=== PATIENT | male | born 1970 | race Caucasian/White ===

== ENCOUNTER 2016-11-14 06:22 | Emergency (ER) | payer OTHER ==
[2016-11-14 06:58] VITALS: BP 113/79; PULSE 83; TEMP 98.1; BMI 28.5
--- NOTE | 2016-11-14 07:17 | PDOC ---
History of Present Illness - General Chief Complaint: Pain Stated Complaint: KNEE PAIN Time Seen by Provider: 11/14/16 07:15 History Source: Patient Exam Limitations: No Limitations - History of Present Illness Initial Comments: CHIEF COMPLAINT: 46 y/o afebrile male with no significant PMH c/o left knee pain since yesterday. HISTORY OF PRESENT ILLNESS: He denies trauma to the area. He did not take any pain medication. He denies f/c, n/v/d, CP, SOB, redness/swelling to affected knee. Vital signs on arrival are within normal limits. REVIEW OF SYSTEMS: GENERAL/CONSTITUTIONAL: No fever/chills. No weakness. No weight change. HEAD, EYES, EARS, NOSE AND THROAT: No change in vision. No ear pain or discharge. No sore throat. MUSCULOSKELETAL: +left knee pain. No swelling or redness to affected knee. No neck or back pain. SKIN: No rash or easy bruising. NEUROLOGIC: No headache, vertigo, loss of consciousness, or loss of sensation. . PHYSICAL EXAM: VITAL_SIGNS: within normal limits GENERAL_APPEARANCE: alert, cooperative, obvious discomfort with ambulation. MENTAL_STATUS: speech clear, oriented X 3, responds appropriately to questions. NEURO: motor intact and sensory intact in injured extremity. EXTREMITIES: No erythema or edema to left knee. Mild warmth to left knee as compared to right. TTP of lateral joint line of left knee. Negative lachmann' s test. SKIN: warm, dry, good color. Past History - Past Medical History Allergies/Adverse Reactions: Allergies Allergy/AdvReac Type Severity Reaction Status Date / Time No Known Allergies Allergy Verified 11/14/16 06:40 Home Medications: Ambulatory Orders Ibuprofen 600 mg PO Q6H #30 tablet 11/14/16 Suicide Attempt (Hx): No Other medical history: denies - Immunization History Immunization Up to Date: Yes - Psycho/Social/Smoking Cessation Hx Anxiety: No Suicidal Ideation: No Smoking History: Never smoked Hx Alcohol Use: No Substance Use Type: None *Physical Exam - Vital Signs Last Vital Signs Temp Pulse Resp BP Pulse Ox 98.1 F 83 18 113/79 100 11/14/16 06:40 11/14/16 06:40 11/14/16 06:40 11/14/16 06:40 11/14/16 06:40 Medical Decision Making - Medical Decision Making A/P: 46 y/o afebrile male with atraumatic left knee pain. Plan is as follows: 1. Left knee xray 2. IM toradol Knee xray IMPRESSION: No gross bone or soft tissue abnormality is seen. Used [employer] sales engineer Eva, #[id number] via [employer]ospace products sales engineer phones to inform the patient of his results. He states he feels better after toradol. Will wrap knee with ANTHONY bandage. Suggested he take 600mg of Ibuprofen every 6 hours with food for pain , follow RICE instructions and f/u with Dr. Rosenberg within 1 week if no improvement in symptoms. Pt instructed to return to the ER with any worsening or concerning symptoms. The patient verbalizes understanding of all instructions, has no further questions and is awaiting discharge. *DC/Admit/Observation/Transfer Diagnosis at time of Disposition: Knee pain, left Qualifiers: Chronicity: acute Qualified Code(s): M25.562 - Pain in left knee - Discharge Dispostion Disposition: HOME Condition at time of disposition: Improved - Prescriptions Prescriptions: Ibuprofen 600 mg PO Q6H #30 tablet - Referrals Referrals: Gonzalez Wheatley MD [Primary Care Provider] - Sahil Rosenberg MD [Staff Physician] - 1 week - Patient Instructions Printed Discharge Instructions: DI for Knee Pain, How To Perform RICE (Rest, Ice, Compress, Elevate) Additional Instructions: Discharge Instructions: -Take Ibuprofen as prescribed with food for pain -Use ANTHONY bandage for comfort. -Follow RICE instructions -Follow up with Dr. Rosenberg within 1 week if no improvement in symptoms Print Language: BULGARIAN
[2016-11-14] MEDS ORDERED: KETOROLAC TROMETHAMINE 60 MG/2 ML VIAL IM ONE (07:25)
[2016-11-14] MEDS ORDERED: KETOROLAC TROMETHAMINE 60 MG/2 ML VIAL ONE (08:05)
== END 2016-11-14 09:28 | disposition home or self-care (01) ==
LOC: JER 06:22
PROC: 3E0233Z Introduction of Anti-inflammatory into Muscle, Percutaneous Approach (ICD-10-PCS; principal; 2016-11-14)
DX: M25.562 Pain in left knee (principal)
CPT/HCPCS: 73562-TC-LT; 96372; 99281-25

== ENCOUNTER 2018-01-19 06:18 | Emergency (ER) | payer OTHER ==
[2018-01-19 07:15] VITALS: BP 122/85; PULSE 76; TEMP 98.2; BMI 24.4
--- NOTE | 2018-01-19 07:39 | PDOC ---
History of Present Illness - General Chief Complaint: Pain, Acute Stated Complaint: NECK/LT SIDE PAIN Time Seen by Provider: 01/19/18 07:38 History Source: Patient Exam Limitations: Language Barrier - History of Present Illness Initial Comments: 01/19/18 07:53 47 year old male with no PMHX presented to ED with one day history of left shoulder pain, and muscle spasm , left side neck pain , the pain is 9/10 , local , non radiating , associated with left side pulsating headache, 3/10 , comes and goes. the patient denies any blurry vision, N/V/D/C, denies chest pain , sob , palpitation, denies any dysuria or hematuria. pt denies any fever, chills, recent cold, or any trauma. denies any numbness, tingling, he only report limited ROM n left neck and left shoulder PMH: None PSH: None FHX DM Allergies: NKDA Meds: None Social: quit smoking 12 years ago, smoke 1ppd for 20 years , drink alcohol 6 pack beer every other day, smoked cocaine 20 years ago , not any more. Physical Exam: Vital Signs Period Temp Pulse Resp BP Sys/Ramos Pulse Ox Last 24 Hr 98.2 F 76 18 122/85 100 General" well nourished in NAD Head: NC/AT Neck" left side muscle stiffness and pain to palpation limited ROM on left side. FROM to the right side ENT: MMM, FAUZIA, EOMI Lungs: CTA B/L , no wheezes. Heart: RRR, No MRG Abdomen: soft, ND/NT, normo active BS Neuro: CNII-CNXII grossly intact , no focal deficit, face symmetric, sensation intact , stregth 5/5 uppewr an lower ext , reflexes intact. Skin: warm , dry, psych: appropriate mood and effect Differentia diagnosis: Torticollis cervical disk herniation unlikley , no numbness or tingling , Work Up: Valium , Toradol pt is stable and will be send home with Motrin 600 mg po q 6 hr for pain and muscle spasm . will avoid any narcotis as pt is drinking alcohol. pt was advised not to drive and he states that his daughter is coming to pick him up. 01/19/18 08:45 Past History - Past Medical History Allergies/Adverse Reactions: Allergies Allergy/AdvReac Type Severity Reaction Status Date / Time No Known Allergies Allergy Verified 01/19/18 07:12 Home Medications: Ambulatory Orders Ibuprofen 600 mg PO Q6H #30 tablet 11/14/16 Ibuprofen [Motrin -] 600 mg PO QID #30 tablet 01/19/18 COPD: No - Immunization History Immunization Up to Date: Yes - Suicide/Smoking/Psychosocial Hx Smoking History: Never smoked Have you smoked in the past 12 months: No Information on smoking cessation initiated: No Hx Alcohol Use: No Drug/Substance Use Hx: No Substance Use Type: None *Physical Exam - Vital Signs Last Vital Signs Temp Pulse Resp BP Pulse Ox 98.2 F 76 18 122/85 100 01/19/18 07:13 01/19/18 07:13 01/19/18 07:13 01/19/18 07:13 01/19/18 07:13 *DC/Admit/Observation/Transfer Diagnosis at time of Disposition: Torticollis - Discharge Dispostion Disposition: HOME Admit: No - Prescriptions Prescriptions: Ibuprofen [Motrin -] 600 mg PO QID #30 tablet - Referrals Referrals: Gonzalez Wheatley MD [Primary Care Provider] - 1 week - Patient Instructions Additional Instructions: You presented to ED due to sever muscle spasm in your neck and left shoulder you will be send home with Motrin 600 mg oral every 6 hours as needed. Please follow up with your primary care physician within one week You can apply hearing pads on your neck increased your activity as tolerated. If your symptoms worsen return to emergency room - Post Discharge Activity
[2018-01-19] MEDS ORDERED: KETOROLAC TROMETHAMINE 15 MG/ML VIAL IM ONE (07:51)
[2018-01-19] MEDS ORDERED: diazePAM 2 MG TABLET PO ONE (07:51)
[2018-01-19] MEDS ORDERED: KETOROLAC TROMETHAMINE 15 MG/ML VIAL ONE (07:55)
[2018-01-19] MEDS ORDERED: diazePAM 2 MG TABLET ONE (07:55)
--- NOTE | 2018-01-19 07:57 | PDOC ---
Attending Attestation - Resident Resident Name: Fady Cisneros - ED Attending Attestation I have performed the following: I have examined & evaluated the patient, The case was reviewed & discussed with the resident, I agree w/resident's findings & plan, Exceptions are as noted <Matilda Sandoval - Last Filed: 01/19/18 07:56> - HPI HPI: 01/19/18 08:09 The patient is a 47 year old male with a past medical history of EtOH abuse who presents to the Emergency Department with Left sided neck and shoulder pain for 1 day. The patient reports that his pain is exacerbated by movement. Patient notes that he drinks a 6-pack of 12 oz beer daily. He denies nausea, vomiting, diarrhea, and fever. He denies cough, shortness of breath, and chest pain. - Physicial Exam PE: 01/19/18 08:14 GENERAL: Awake, alert, and fully oriented, in no acute distress HEAD: No signs of trauma EYES: PERRLA, EOMI, sclera anicteric, conjunctiva clear ENT: Auricles normal inspection, nares patent, Moist mucosa NECK: Normal ROM, supple, no lymphadenopathy, JVD, or masses LUNGS: Breath sounds equal, clear to auscultation bilaterally. No wheezes, and no crackles HEART: Regular rate and rhythm, normal S1 and S2, no murmurs, rubs or gallops ABDOMEN: Soft, nontender, normoactive bowel sounds. No guarding, no rebound. No masses MUSCULOSKELETAL: (+) No midline spinal tenderness. Left sided trapezius muscle tenderness and spasm.: Normal range of motion, no edema. No clubbing or cyanosis. No cords, erythema. Right upper extremity 5/5 strength sensation intact. Median and Ulnar nerve intact NEUROLOGICAL: Cranial nerves intact, Normal speech SKIN: Warm, Dry, normal turgor, no rashes or lesions noted. - Medical Decision Making 01/19/18 08:14 Documentation prepared by Sarath La, acting as medical collections representative for Matilda Sandoval MD. <Sarath La - Last Filed: 01/19/18 08:14>
== END 2018-01-19 08:46 | disposition home or self-care (01) ==
LOC: JER 06:18
PROC: 3E0233Z Introduction of Anti-inflammatory into Muscle, Percutaneous Approach (ICD-10-PCS; principal; 2018-01-19)
DX: M43.6 Torticollis (principal)
CPT/HCPCS: 96372; 99282-25